=== PATIENT | female | born 1960 | race Caucasian/White ===

== ENCOUNTER → 2016-08-27 | Outpatient (REF) | payer OTHER ==
[2016-08-27 16:02] LABS: ANION GAP 6 MEQ/L (8-16); BLOOD UREA NITROGEN 9 MG/DL (7-18); CALCIUM LEVEL 9.7 MG/DL (8.5-10.1); CARBON DIOXIDE LEVEL 33 MEQ/L (21-32); CHLORIDE LEVEL 102 MEQ/L (98-107); CHOLESTEROL LEVEL 242 MG/DL (<200); GLOMERULAR FILTRATION RATE > 60.0 (>51); GLUCOSE, FASTING 85 MG/DL (70-105); POTASSIUM SERUM 4.8 MEQ/L (3.5-5.1); SODIUM LEVEL 141 MEQ/L (136-145); TRIGLYCERIDES LEVEL 211 MG/DL (<150)
== END ==
LOC: M LABDRWSH 15:27
PROVIDERS: ATTEND Family Medicine
DX: I10 Essential (primary) hypertension (principal)

== ENCOUNTER → 2017-12-07 | Outpatient (CLI) | payer OTHER | LOC: M WHC 08:58 | DX: N94.10 Unspecified dyspareunia (principal); R10.2 Pelvic and perineal pain; N83.202 Unspecified ovarian cyst, left side | CPT/HCPCS: 76830 ==

== ENCOUNTER → 2018-01-18 | Outpatient (CLI) | payer OTHER | LOC: M EKG 11:07 | DX: R00.1 Bradycardia, unspecified (principal); I10 Essential (primary) hypertension | CPT/HCPCS: 93005 ==

== ENCOUNTER 2018-01-22 07:12 | Day surgery (SDC) | payer OTHER ==
[2018-01-22] MEDS: LR 1,000 ML IV (07:44)
[2018-01-22 08:06] LABS: HEMOGLOBIN 12.9 g/dl (12.0-15.5); MEAN CORPUSCULAR HEMOGLOBIN 29.8 pg (27.0-33.0); MEAN CORPUSCULAR HGB CONC 32.3 g/dl (32.0-36.5); MEAN CORPUSCULAR VOLUME 92.4 fl (80.0-96.0); PLATELET COUNT, AUTOMATED 277 10^3/uL (150-450); RED BLOOD COUNT 4.33 10^6/uL (4.00-5.40); RED CELL DISTRIBUTION WIDTH 12.7 % (11.5-14.5); WHITE BLOOD COUNT 5.6 10^3/uL (4.0-10.0)
[2018-01-22] MEDS ORDERED: LIDOCAINE 2% INJ 100 MG/5 ML SDV (FOR ANES.) As Ordered (08:41)
[2018-01-22] MEDS ORDERED: PROPOFOL 200 MG/20 ML VIAL As Ordered (08:41)
[2018-01-22] MEDS ORDERED: ROCURONIUM BROMIDE 50 MG/5 ML VIAL As Ordered (08:41)
[2018-01-22] MEDS ORDERED: MIDAZOLAM INJ 2 MG/2 ML VIAL (J2250) As Ordered (08:42)
[2018-01-22] MEDS ORDERED: fentaNYL 250 MCG/5 ML INJECTION (J3010) As Ordered (08:42)
[2018-01-22] MEDS ORDERED: KETOROLAC 60 MG/2 ML VIAL (J1885) As Ordered (10:13)
[2018-01-22] MEDS ORDERED: METOCLOPRAMIDE INJ 10MG/2ML VIAL (J2765) As Ordered (10:13)
[2018-01-22] MEDS ORDERED: GLYCOPYRROLATE INJ 0.2 MG/ML 2 ML VIAL As Ordered (10:13)
[2018-01-22] MEDS ORDERED: dexameTHASONE 4 MG/ML 1ML VIAL (J1100) As Ordered ×2 (10:13→10:14)
[2018-01-22] MEDS ORDERED: ONDANSETRON 4MG/2ML VIAL (J2405) As Ordered (10:13)
[2018-01-22] MEDS ORDERED: NEOSTIGMINE 10 MG/10 ML VIAL (J2710) As Ordered (10:13)
[2018-01-22] MEDS: BUPIVACAINE HCL 0.25% 30 ML VIAL As Ordered (10:30)
[2018-01-22] MEDS ORDERED: LR 1,000 ML IV ×2 (11:30→11:45)
[2018-01-22] MEDS ORDERED: PERCOCET 5MG/325MG TAB PO ×3 (11:30→11:45)
[2018-01-22] MEDS ORDERED: ONDANSETRON 4MG/2ML VIAL (J2405) IV (11:45)
[2018-01-22] MEDS ORDERED: MEPERIDINE INJ 25 MG/ML VIAL (J2175) IV (11:45)
[2018-01-22] MEDS ORDERED: METOCLOPRAMIDE INJ 10MG/2ML VIAL (J2765) IV (11:45)
[2018-01-22] MEDS ORDERED: fentaNYL 100 MCG/2 ML INJECTION (J3010) IV (11:45)
== END 2018-01-22 12:20 | disposition home or self-care (01) ==
LOC: M SDC 07:12
DX: D27.1 Benign neoplasm of left ovary (principal); I10 Essential (primary) hypertension; E78.5 Hyperlipidemia, unspecified; F12.90 Cannabis use, unspecified, uncomplicated; Z79.899 Other long term (current) drug therapy; Z98.51 Tubal ligation status
CPT/HCPCS: 58661

== ENCOUNTER → 2019-08-29 | Outpatient (CLI) | payer OTHER ==
[~2019-08-29] MED LIST: ESTR62CR; HYDR12CA PO; OXYC1TAB23 PO; PRAV40TA2 PO
[2019-08-29 16:26] LABS: BLOOD UREA NITROGEN 14 MG/DL (7-18); CALCIUM LEVEL 9.1 MG/DL (8.8-10.2); CARBON DIOXIDE LEVEL 33 MEQ/L (21-32); CHLORIDE LEVEL 104 MEQ/L (98-107); CHOLESTEROL LEVEL 192 MG/DL (<200); CREATININE FOR GFR 0.85 MG/DL (0.55-1.30); GLOMERULAR FILTRATION RATE > 60.0 (>45); GLUCOSE, FASTING 92 MG/DL (70-100); HDL CHOLESTEROL 60 MG/DL (>40); LDL CHOLESTEROL 91 MG/DL (<100); NON-HDL-C 132 MG/DL; SODIUM LEVEL 139 MEQ/L (136-145); TRIGLYCERIDES LEVEL 204 MG/DL (<150)
== END ==
LOC: M WUC 12:53
PROVIDERS: ATTEND Family Medicine
DX: E78.2 Mixed hyperlipidemia (principal); I10 Essential (primary) hypertension

== ENCOUNTER → 2020-10-25 | Outpatient (REF) | payer OTHER | LOC: M SFHCWAGY 18:10 | PROVIDERS: ATTEND Nurse Practitioner Women's Health | DX: Z12.4 Encounter for screening for malignant neoplasm of cervix (principal) ==

== ENCOUNTER → 2021-11-11 | Outpatient (CLI) | payer OTHER | LOC: M WUC 13:55 | DX: M54.40 Lumbago with sciatica, unspecified side (principal) ==

== ENCOUNTER → 2023-11-02 | Outpatient (REF) | payer OTHER | LOC: M SFHCWAGY 17:03 | PROVIDERS: ATTEND Nurse Practitioner Women's Health | DX: Z12.4 Encounter for screening for malignant neoplasm of cervix (principal); Z01.419 Encounter for gynecological examination (general) (routine) without abnormal findings; Z77.9 Other contact with and (suspected) exposures hazardous to health ==